=== PATIENT | female | born 1965 | race Caucasian/White ===

== ENCOUNTER 2019-04-18 09:15 | Day surgery (SDC) | payer OTHER ==
[2019-04-16 16:00] VITALS: BP 106/71
[2019-04-16 16:19] LABS: BASOPHILS % (AUTO) 0.6 % (0.0-5.0); EOSINOPHILS % (AUTO) 2.4 % (0.0-8.0); LYMPHOCYTES % (AUTO) 34.1 % (21.0-51.0); MEAN CORPUSCULAR HEMOGLOBIN 29.9 pg (27.0-33.0); MEAN CORPUSCULAR HGB CONC 33.9 g/dL (32.0-36.0); MEAN CORPUSCULAR VOLUME 88.2 fL (79-99); MONOCYTES % (AUTO) 7.6 % (3.0-13.0); NEUTROPHILS % (AUTO) 55.3 % (40.0-77.0); NUCLEATED RED BLOOD CELLS 0.1 % (0.0-0.19); PLATELET COUNT (AUTO) 251 K/uL (130-400); RED BLOOD CELL COUNT(AUTO) 4.54 MIL/uL (4.00-5.50); RED CELL DISTRIBUTION WIDTH 13.8 % (11.0-15.5); WHITE BLOOD COUNT (AUTO) 7.7 K/uL (4.8-10.8)
[2019-04-16 16:21] LABS: APPEARANCE,URINE SL CLOUDY (CLEAR); BILIRUBIN,URINE NEGATIVE (NEGATIVE); COLOR,URINE YELLOW (YELLOW); GLUCOSE, URINE (UA) NEGATIVE (NEGATIVE); KETONES,URINE NEGATIVE (NEGATIVE); LEUKOCYTE ESTERASE ,URINE LARGE (NEGATIVE); NITRATE,URINE NEGATIVE (NEGATIVE); OCCULT BLOOD,URINE LARGE (NEGATIVE); PH,URINE 6.5 (5.0-8.0); PROTEIN,URINE 30 mg/dL (NEGATIVE); UROBILINOGEN,URINE 0.2 mg/dL (0.2-1.0)
[2019-04-16 16:28] LABS: CREATININE 0.9 mg/dL (0.5-1.5); POTASSIUM 3.9 mmol/L (3.5-5.1)
[2019-04-16 16:38] LABS: BACTERIA,URINE Few /HPF (None Seen)
[2019-04-16 16:39] LABS: RBC,URINE 26-50 /HPF (0-1)
[2019-04-16 16:40] LABS: SQUAMOUS EPITHELIAL CELL,UR Rare /HPF (0-2)
--- NOTE | 2019-04-17 20:16 | NUR ---
Called [facility] answering service to advise him of ua results and urine cx, spoke to answering service x2 no call back, Called cell phone and left message, no call back.
[2019-04-18] VITALS (15 sets, daily range): BP systolic 120–141; BP diastolic 68–76
[~2019-04-18] VITALS: Ht 160 cm; Wt 85.7 kg
[~2019-04-18 09:15] MED LIST: ACET-2247 PO; IBUP-2070 PO; PHEN-775 PO; TAMS-1 PO
[2019-04-18] MEDS ORDERED: LACTATED RINGERS 1000ML 1,000 ML IV ONE (09:22)
[2019-04-18] MEDS ORDERED: GENTAMICIN 80 MG/NS 100 ML PB 100 ML IV SCH (09:22)
[2019-04-18] MEDS ORDERED: CEFTRIAXONE SODIUM 1 GM ONE (09:23)
[2019-04-18] MEDS ORDERED: IOHEXOL-350 50ML VIAL IV ONE (10:30)
[2019-04-18] MEDS ORDERED: LIDOCAINE PF 2% 5ML ABBOJECT ONE (11:56)
[2019-04-18] MEDS ORDERED: MIDAZOLAM HCL 1 MG/ML 2ML VIAL ONE (11:56)
[2019-04-18] MEDS ORDERED: PROPOFOL 10 MG/ML 20ML VIAL IV ONE (11:56)
[2019-04-18] MEDS ORDERED: FENTANYL CITRATE PF 50 MCG/1 ML 5ML AMP IV ONE (11:57)
[2019-04-18] MEDS ORDERED: EPHEDRINE SULFATE 50 MG/ML AMPULE ONE (12:11)
[2019-04-18] MEDS ORDERED: ONDANSETRON HCL 4 MG/2 ML VIAL ONE (12:12)
[2019-04-18] MEDS ORDERED: DEXAMETHASONE SOD PHOSPHATE 10MG/ML 1ML VIAL ONE (12:12)
--- NOTE | 2019-04-18 14:20 | NUR ---
POST RECEIVED PATIENT FROM PACU, S/P URETEROSCOPY , LEFT URETERAL STENT EXCHANGE. STRING ATTACHED TO PUBIC AREA WITH DERMABOND. PATIENT AWAKE AND ALERT IN BED,NO DISTRESS NOTED. DENIED ANY PAIN OR DISCOMFORTS. VS STABLE ON ARRIVAL
--- NOTE | 2019-04-18 14:52 | NUR ---
DC PT DC HOME VIA WC,NO DISTRESS NOTED. DENIED ANY PAIN OR DISCOMFORTS. ACCOMPANIED BY SPOUSE, STRING ATTACHED WITH DERMABOND TO PUBIC AREA
== END 2019-04-18 14:52 | disposition home or self-care (01) ==
LOC: DAH 09:15 → EDSEX 14:00 → DAH 14:52
PROVIDERS: ATTEND Urology
DX: N20.1 Calculus of ureter (principal); Z98.890 Other specified postprocedural states; Z90.49 Acquired absence of other specified parts of digestive tract; Z90.710 Acquired absence of both cervix and uterus; Z79.899 Other long term (current) drug therapy; Z82.49 Family history of ischemic heart disease and other diseases of the circulatory system; Z83.3 Family history of diabetes mellitus
CPT/HCPCS: 36415 ×2; 52356; 80048; 81001; 82360; 85025; 87077; 87088; 87186; 93005; A4215; A4221; A4222; A4223; A4354; A4358; A4600; A4649; A4657; A4663; A6204; A6206; A6260; C1758; C1769; C1894; C2617; J0696; J1100; J1580; J2001; J2250; J2405; J2704; J3010; J3490; J7120 ×2; 77002; Q9967